=== PATIENT | female | born 1980 | race Caucasian/White ===

== ENCOUNTER 2016-05-21 09:01 | Emergency (ER) | payer BC ==
[~2016-05-21] VITALS: Ht 165.1 cm; Wt 56.5 kg
[2016-05-21 09:04] VITALS: Ht 165.1 cm; Wt 56.5 kg
--- NOTE | 2016-05-21 10:52 | ERD ---
ER Documentation Chief Complaint Date/Time DATE: 05/21/16 TIME: 10:48 Chief Complaint SPOTTING LAST NIGHT , 8 WEEKS PREG , LMP 03/19/16 HPI This is a 36-year-old female who presents to the emergency department today complaining of vaginal spotting that started this morning. Patient has been seen here in the emergency department in the past for similar. States she is approximately 8 weeks . States she has some nausea but has not had any vomiting. Denies any abdominal pain. States she is worried that there is something wrong. States she does not want a transvaginal ultrasound. Denies any fevers or chills. ROS All systems reviewed and are negative except as per history of present illness. Allergies Allergies: Coded Allergies: No Known Allergy (Unverified , 04/25/16) PMhx/Soc History of Surgery: Yes (Kidney Surg?) Anesthesia Reaction: No Hx Neurological Disorder: No Hx Respiratory Disorders: No Hx Cardiac Disorders: No Hx Psychiatric Problems: No Hx Miscellaneous Medical Probl: Yes (Hypothyroidism,UTIs) Hx Alcohol Use: No Hx Substance Use: No Hx Tobacco Use: No Smoking Status: Never smoker Physical Exam Vitals Vital Signs Date Time Temp Pulse Resp B/P Pulse Ox O2 Delivery O2 Flow Rate FiO2 05/21/16 09:04 97.7 88 16 107/60 100 Physical Exam Const: No acute distress Head: Atraumatic Eyes: Normal Conjunctiva ENT: Normal External Ears, Nose and Mouth. Neck: Full range of motion..~ No meningismus. Resp: Clear to auscultation bilaterally Cardio: Regular rate and rhythm, no murmurs Abd: Soft, non tender, non distended. Normal bowel sounds. No right lower quadrant pain. No left lower quadrant pain. Skin: No petechiae or rashes Neur: Awake and alert Psych: Normal Mood and Affect Result Diagram: 05/21/16 1016 Results 24 hrs Laboratory Tests Test 05/21/16 10:12 05/21/16 10:16 Urine Bacteria FEW Urine Bilirubin NEGATIVE Urine Clarity CLEAR Urine Color LT. YELLOW Urine Epithelial Cells RARE Urine Glucose NEGATIVE% Urine Hemoglobin 1+ Urine Ketones NEGATIVE Urine Leukocyte Esterase NEGATIVE Urine Microscopic RBC 0-2/HPF Urine Microscopic WBC 0-2/HPF Urine Nitrite NEGATIVE Urine Specific [place] 1.020 Urine Total Protein NEGATIVE Urine Urobilinogen 0.2 E.U./dL Urine pH 7.0 Basophils # 0.010^3/ul Basophils % 0.6% Beta HCG, Quantitative 79349.0mIU/ml Eosinophils # 0.110^3/ul Eosinophils % 0.9% Hematocrit 38.0% Hemoglobin 12.9g/dl Lymphocytes # 2.010^3/ul Lymphocytes % 34.5% Mean Corpuscular Hemoglobin 30.1pg Mean Corpuscular Hemoglobin Concent 34.0g/dl Mean Corpuscular Volume 88.6fl Mean Platelet Volume 8.8fl Monocytes # 0.410^3/ul Monocytes % 7.6% Neutrophils # 3.310^3/ul Neutrophils % 56.4% Nucleated Red Blood Cells # 0.010^3/ul Nucleated Red Blood Cells % 0.0/100WBC Platelet Count 17544^3/UL Red Blood Count 4.2910^6/ul Red Cell Distribution Width 13.1% White Blood Count 5.910^3/ul Patient: ABDOULAYE WARREN : 1980 Age: 36 Sex: F MR #: [id number] DOS: 05/21/16 0953 Ordering MD: DEJON AGUILAR PA-C Location: [facility] Room/Bed: PROCEDURE: US OB. CLINICAL INDICATION: Vaginal bleeding TECHNIQUE: Transabdominal imaging of the pelvis was performed. The patient refused transvaginal imaging. Images are reviewed on a high-resolution PACS workstation. COMPARISON: None available FINDINGS: Irregularly shaped intrauterine gestational sac is identified. Mean sac diameter is 2.69 cm, corresponding to 7 weeks 5 days gestational age. pole is seen. G[place]-rump length is 0.66 cm, corresponding to 6 weeks 4 days gestational age. No cardiac activity is identified. Right ovary is unremarkable. Left ovary demonstrates a 1.4 cm corpus luteum cyst. No ovarian torsion, adnexal mass or pelvic free fluid is seen. IMPRESSION: 1. Irregularly shaped intrauterine gestational sac is identified. Small, poorly defined pole is present, without identifiable cardiac activity. Findings are concerning for failed early . Short interval sonographic follow-up in 2-3 days suggested for confirmation. RPTAT: EE .Mervin Ortega MD, Date Time Electronically viewed and signed by .Mervin Ortega MD, MD on 05/21/2016 11: 30 .R/ CC: DEJON AGUILAR PA-C Procedures/MDM This is a 36-year-old female who presents to the emergency department today for vaginal spotting that started this morning. This is the patient's fourth visit to the emergency department for pelvic related pain or vaginal spotting. Patient states that she did not call her [employer] Dr. Ricketts because "I have a better chance of being seen here then being seen by them". Patient is concerned that there is something wrong and is wanting reassurance. Given the patient's complaints of vaginal bleeding I did obtain an OB workup. Laboratory work shows no elevated white blood count, and she is not anemic. Platelets are within normal limits. UA is negative for infection. Beta Quant hCG 79477.0 Rh status done on previous visit patient is B+. Ultrasound shows irregularly shaped intrauterine gestational sac identified. There is a small poorly defined pole present without identified cardiac telemetry. Findings or concern for failed early . Short interval ultrasound follow-up in 2-3 days is suggested for confirmation. There is no ovarian torsion, adnexal mass or pelvic free fluid. I have explained the results of the patient. Patient sometimes of vaginal spotting possibly due to early failed versus normal . A repeat ultrasound and beta Quant is recommended in 48 hours. I have discussed the findings with the patient instructed her to follow up. Patient indicated she has a very difficult time getting in to see the [employer]. I have given her a list of [employer] resources. Patient declined any Tylenol prescription for home she states she doesn't have any pain. Patient has refused a transvaginal ultrasound multiple times here in the emergency department and she states "I am not comfortable with that". Patient has no abdominal pain on physical exam of low suspicion for any acute surgical abdomen. Patient declined any medication for nausea. At this time the patient is stable for discharge and outpatient management. Patient should follow up with their PCP in the next 1-2 days. They may return to the emergency department sooner for any persistent or worsening of symptoms. Patient understood and agreed with the plan. Departure Diagnosis: Primary Impression: Vaginal bleeding in patient at less than 20 weeks gestation Condition: DEJON Harkins PA-C May 21, 2016 10:52
[2016-05-21 10:53] LABS: BASOPHILS % 0.6 % (0.0-2.0); EOSINOPHILS # 0.1 10^3/ul (0.0-0.5); EOSINOPHILS % 0.9 % (0.0-7.0); HEMOGLOBIN 12.9 g/dl (12.0-16.0); LYMPHOCYTES % 34.5 % (15.0-51.0); MEAN CORPUSCULAR HEMOGLOBIN 30.1 pg (29.0-33.0); MEAN CORPUSCULAR VOLUME 88.6 fl (82.0-101.0); MEAN PLATELET VOLUME 8.8 fl (7.4-10.4); MONOCYTE # 0.4 10^3/ul (0.3-0.9); MONOCYTES % 7.6 % (0.0-11.0); NEUTROPHIL # 3.3 10^3/ul (1.6-7.5); NEUTROPHILS % 56.4 % (39.0-77.0); PLATELET COUNT 177 10^3/UL (140-440); RED BLOOD COUNT 4.29 10^6/ul (4.20-5.40); RED CELL DISTRIBUTION WIDTH 13.1 % (11.5-14.5); UNCORRECTED WBC 5.9 10^3/ul (4.8-10.8); WHITE BLOOD COUNT 5.9 10^3/ul (4.8-10.8)
[2016-05-21 11:05] LABS: ADD UMIC YES; URINE BILIRUBIN (Dip) NEGATIVE (NEGATIVE); URINE BLOOD (Dip) 1+ (NEGATIVE); URINE COLOR LT. YELLOW (YELLOW); URINE GLUCOSE (Dip) NEGATIVE (NEGATIVE); URINE KETONES (Dip) NEGATIVE (NEGATIVE); URINE LEUKOCYTE ESTERASE (Dip) NEGATIVE (NEGATIVE); URINE NITRITE (Dip) NEGATIVE (NEGATIVE); URINE TOTAL PROTEIN (Dip) NEGATIVE (NEGATIVE); URINE UROBILINOGEN (Dip) 0.2 E.U./dL (0.1-1.0)
[2016-05-21 11:12] LABS: CONDITION 1
[2016-05-21 11:23] LABS: BACTERIA,URINE FEW; URINE RBCS 0-2 /HPF (0)
--- NOTE | 2016-05-21 11:31 | RADRPT ---
PROCEDURE: US OB. CLINICAL INDICATION: Vaginal bleeding TECHNIQUE: Transabdominal imaging of the pelvis was performed. The patient refused transvaginal i maging. Images are reviewed on a high-resolution PACS workstation. COMPARISON: None available FINDINGS: Irregularly shaped intrauterine gestational sac is identified. Mean sac diameter is 2.69 cm, corresponding to 7 weeks 5 days gestational age. pole is seen. [place]-rump length is 0.66 cm, corresponding to 6 weeks 4 days gestational age. No cardiac activity is identified. Right ovary is unremarkable. Left ovary demonstrates a 1.4 cm corpus luteum cyst. No ovarian torsion, adnexal mass or pelvic free fluid is seen. IMPRESSION: 1. Irregularly shaped intrauterine gestational sac is identified. Small, poorly defined pole is present, without identifiable cardiac activity. Findings are concerning for failed early pregnan cy. Short interval sonographic follow-up in 2-3 days suggested for confirmation. RPTAT: EE .Mervin Oretga MD, MD Date Time Electronically viewed and signed by .Mervin Ortega MD, on 05/21/2016 11:30 .R/
[2016-05-21 13:03] VITALS: BP 110/69; PULSE 68; RESP 16
== END 2016-05-21 13:04 | disposition home or self-care (01) ==
LOC: FTE 09:01
DX: O20.9 Hemorrhage in early pregnancy, unspecified (principal); E03.9 Hypothyroidism, unspecified; R10.2 Pelvic and perineal pain; Z3A.01 Less than 8 weeks gestation of pregnancy
CPT/HCPCS: 36415; 76801; 81001; 81003; 84702; 85025